=== PATIENT | male | born 1960 | race Caucasian/White ===

== ENCOUNTER 2017-01-19 06:55 | Inpatient (IN) | payer OTHER ==
[~2017-01-19] VITALS: Ht 182.9 cm; Wt 136.1 kg
[2017-01-19] VITALS (15 sets, daily range): BP systolic 36–150; BP diastolic 19–98
[2017-01-19] MEDS ORDERED: Ampicillin/Sulbactam Sod 3 GM in NS 110 ML IV SCH (07:30)
[2017-01-19 07:34] LABS: MEAN CORPUSCULAR HEMOGLOBIN 29.2 PG (27.0-31.0); MEAN CORPUSCULAR HGB CONC 30.2 G/DL (32.0-36.0); MEAN CORPUSCULAR VOLUME 97 FL (80-99); MEAN PLATELET VOLUME 5.9 FL (6.5-10.1); PLATELET COUNT 220 K/UL (150-450); RED BLOOD COUNT 1.28 M/UL (4.70-6.10); RED CELL DISTRIBUTION WIDTH 14.9 % (11.6-14.8)
[2017-01-19 07:38] LABS: WHITE BLOOD COUNT 30.4 K/UL (4.8-10.8)
--- NOTE | 2017-01-19 07:38 | Emergency Room Report ---
History of Present Illness General Chief Complaint: Altered Level of Consciousness Source: Family Member, EMS Present Illness HPI Patient is a 56-year-old male who is brought in by EMS after a full arrest. Patient was noted to have initially told his to call 911. The patient had prior history of chronic back pain and hypertension. He reportedly had been taking multiple pain medications. He had not been noted to have any cardiac history or recent episodes of bleeding. The patient had approximate downtime is 10 minutes prior to arrival.Patient previously been awake and alert.Intraosseous line was placed by EMS. Patient given one round of epinephrine prior to arrival Allergies: Coded Allergies: No Known Allergies (Unverified , 01/19/17) Patient History Past Medical History: see triage record Reviewed Nursing Documentation: PMH: Agreed, PSxH: Agreed Nursing Documentation-PMH Hx Hypertension: Yes Hx Diabetes: Yes Review of Systems All Other Systems: negative except mentioned in HPI Physical Exam Vital Signs Date Time Temp Pulse Resp B/P Pulse Ox O2 Delivery O2 Flow Rate FiO2 01/19/17 06:48 50 0 0/0 96 Ambu-Bag 01/19/17 06:55 100 01/19/17 06:55 50.0 Sp02 EP Interpretation: reviewed, normal General Appearance: normal inspection, well appearing, no apparent distress, alert, GCS 15 Head: atraumatic ENT: normal ENT inspection, hearing grossly normal, normal voice Neck: normal inspection, full range of motion, supple, no bony tend Respiratory: normal inspection, lungs clear, normal breath sounds, no respiratory distress, no retraction, no wheezing Cardiovascular #1: regular rate, rhythm, no edema Gastrointestinal: normal inspection, normal bowel sounds, non tender, soft, no guarding, no hernia Genitourinary: no CVA tenderness Musculoskeletal: normal inspection, back normal, normal range of motion Neurologic: normal inspection, alert, responsive, speech normal Psychiatric: normal inspection, judgement/insight normal, mood/affect normal Skin: normal inspection, normal color, no rash Procedures Critical Care Time Critical Care Time Patient had a critical medical condition which untreated could potentially result in life or limb threatening injury. Total critical care time excluding procedures approximately 45 minutes. Central Line Central Line : Consent: Emergent Central Line Lumen: triple Maximal Sterile Barrier Tech: yes cap, yes mask, yes sterile gown, yes sterile gloves, yes large sterile sheet, yes hand hygiene, yes chlorhexidine prep Central Line Postion: internal jugular (R) Anesthesia: local cc's of anesthesia: 3 Complications: none Central Line Post Position: sutured, good blood return, position confirmed w / CXR Attempts: Other - three attempted right subclavian without success and right femoral Patient Tolerated: Well Complications: None Intubation Intubation : Consent: Emergent Intubation Method: orotracheal Tube Size (cm): 8.0 Medications: Other - none Breath Sounds after Intubation: equal Intubation Complications: no complications Post Intubation Xray: Yes Attempts: One Patient Tolerated: Well Complications: None Medical Decision Making Diagnostic Impression: Primary Impression: Cardiac arrest Additional Impressions: Shock liver Hx of peptic ulcer Metabolic acidosis Severe anemia Upper GI bleed H/O gastric bypass Renal insufficiency ER Course Patient is a full arrest. The differential diagnosis include was noted to GI bleed, ulcer, myocardial infarction, aortic dissection, among others.Because of complexity of patient's case laboratory testing and imaging studies were ordered. The patient was noted to have initial full arrest. He was placed on cardiac exercise specialist. CPR was initiated. The patient was started on IV fluids via I/O and was given epinephrine.The medications are given as per code sheet. The patient was noted to have history calcium channel brian use and was given IV calcium and IV bicarbonateThe patient was given uncrossmatch blood emergently. Patient was subsequently noted to have a return spontaneous circulation as per code sheet. The patient's initial hemoglobin was approximately 4. The patient started on transfusion of crossmatched blood. He was given IV bicarbonate for metabolic acidosis. Patient was noted per family to have history of multiple medication use which included NSAIDs as well as narcotic pain medication. The patient was given IV Narcan without any change in his blood pressure.He stated on IV protonic. A right internal jugular central venous line was placed under sterile technique. Post procedure x-ray showed low ET tube which was adjusted to 25 cm. The patient was also noted to have adequate central line placement there is no evident pneumothorax noted.Patient's family was notified of the patient's condition.The patient was given IV calcium. Patient was also given empiric antibiotics as he appeared to have aspirated. Dr. Zaragoza was contacted for inpatient management due to capitated physician. Dr. Ireland was contacted for GI consult. Labs Test 01/19/17 07:00 01/19/17 07:05 01/19/17 07:41 White Blood Count 30.4 K/UL (4.8-10.8) Red Blood Count 1.28 M/UL (4.70-6.10) Hemoglobin 3.7 G/DL (14.2-18.0) Hematocrit 12.4 % (42.0-52.0) Mean Corpuscular Volume 97 FL (80-99) Mean Corpuscular Hemoglobin 29.2 PG (27.0-31.0) Mean Corpuscular Hemoglobin Concent 30.2 G/DL (32.0-36.0) Red Cell Distribution Width 14.9 % (11.6-14.8) Platelet Count 220 K/UL (150-450) Mean Platelet Volume 5.9 FL (6.5-10.1) Neutrophils (%) (Auto) % (45.0-75.0) Lymphocytes (%) (Auto) % (20.0-45.0) Monocytes (%) (Auto) % (1.0-10.0) Eosinophils (%) (Auto) % (0.0-3.0) Basophils (%) (Auto) % (0.0-2.0) Prothrombin Time 11.1 SEC (9.30-11.50) Prothromb Time International Ratio 1.1 (0.9-1.1) Activated Partial Thromboplast Time 55 SEC (23-33) Sodium Level 145 mEQ/L (135-145) Potassium Level 5.4 mEQ/L (3.4-4.9) Chloride Level 101 mEQ/L (98-107) Carbon Dioxide Level 7 mEQ/L (20-30) Anion Gap 37 (5-15) Blood Urea Nitrogen 29 mg/dL (7-23) Creatinine 2.1 mg/dL (0.7-1.2) Estimat Glomerular Filtration Rate 32.7 mL/min (>60) Glucose Level 209 mg/dL (74-106) Lactic Acid Level 23.10 mmol/L (0.66-2.22) Calcium Level 9.9 mg/dL (8.6-10.2) Total Bilirubin 0.5 mg/dL (0.0-1.2) Aspartate Amino Transf (AST/SGOT) 510 U/L (5-40) Alanine Aminotransferase (ALT/SGPT) 366 U/L (3-41) Alkaline Phosphatase 98 U/L (40-129) Creatine Kinase MB 4.4 ng/mL (< 6.7) Troponin I < 0.30 ng/mL (<=0.30) Pro-B-Type Natriuretic Peptide 1133 pg/mL (0-125) Total Protein 5.8 g/dL (6.6-8.7) Albumin 3.0 g/dL (3.5-5.2) Globulin 2.8 g/dL Albumin/Globulin Ratio 1.0 (1.0-2.7) Lipase 21 U/L (< 60) Arterial Blood pH 6.792 (7.350-7.450) Arterial Blood Partial Pressure CO2 44.5 mmHg (35.0-45.0) Arterial Blood Partial Pressure O2 179.7 mmHg (75.0-100.0) Arterial Blood HCO3 6.6 mmol/L (22.0-26.0) Arterial Blood Oxygen Saturation 96.7 % (92.0-98.0) Arterial Blood Base Excess -24.7 Ryley Test Positive EKG Diagnostic Results Rate: normal ST Segments: no acute changes Rhythm Strip Diag. Results EP Interpretation: yes Rhythm: NSR, no PVC's, no ectopy Last Vital Signs Date Time Temp Pulse Resp B/P Pulse Ox O2 Delivery O2 Flow Rate FiO2 01/19/17 06:58 50 0 0/0 98 Ambu-Bag 01/19/17 06:55 50.0 100 Status: unchanged Disposition: ADMITTED INPATIENT Condition: Critical Suman Garcia Jan 19, 2017 07:38
[2017-01-19 07:43] LABS: CALCIUM 9.9 mg/dL (8.6-10.2); CREATININE 2.1 mg/dL (0.7-1.2); GLOMERULAR FILTRATION RATE 32.7 mL/min (>60); POTASSIUM 5.4 mEQ/L (3.4-4.9); TOTAL PROTEIN 5.8 g/dL (6.6-8.7); TROPONIN I < 0.30 ng/mL (<=0.30)
[2017-01-19] MEDS ORDERED: Calcium Chloride 100mg/ml Vial IVP ONE ×2 (07:45→10:45)
[2017-01-19] MEDS ORDERED: Naloxone 1mg/ml 2ml IVP ONE (07:45)
[2017-01-19] MEDS ORDERED: Pantoprazole Inj IVP ONE (07:45)
[2017-01-19 07:47] LABS: ABG PCO2 44.5 mmHg (35.0-45.0)
[2017-01-19 07:48] LABS: ABG ALLEN TEST POSITIVE; ABG BASE EXCESS -24.7
[2017-01-19 07:49] LABS: INR 1.1 (0.9-1.1); PROTHROMBIN TIME 11.1 SEC (9.30-11.50)
[2017-01-19 07:54] LABS: CKMB 4.4 ng/mL (< 6.7)
[2017-01-19 07:55] LABS: REFLEX LACTIC ACID YES OR NO YES
[2017-01-19] MEDS ORDERED: Sodium Bicarbonate 50ml Carp IV ONE ×2 (08:00→10:45)
[2017-01-19 08:04] LABS: BAND NEUTROPHILS % (MANUAL) 4 % (0-8); BASOPHILS % (MANUAL) 0 % (0-2); EOSINOPHILS % (MANUAL) 1 % (0-3); LYMPHOCYTES % (MANUAL) 25 % (20-45); MYELOCYTES % 1 % (0-0); NEUTROPHILS % (MANUAL) 64 % (45-75); PLATELET ESTIMATE ADEQUATE; TOTAL CELLS COUNTED 100
[2017-01-19 08:05] LABS: ANISOCYTOSIS 1+; HYPOCHROMASIA 2+; MACROCYTES 1+; PLATELET MORPHOLOGY NORMAL; POLYCHROMASIA 1+
[2017-01-19 08:06] LABS: NUCLEATED RED BLOOD CELLS 2 /100 WBC
[2017-01-19] MEDS ORDERED: Unasyn 3gm Inj ONE (08:18)
[2017-01-19 08:41] LABS: ABG ALLEN TEST POSITIVE; ABG BASE EXCESS 24.5; ABG PCO2 56.4 mmHg (35.0-45.0)
[2017-01-19] MEDS ORDERED: Hydrocortisone 100mg Inj IV ONE (10:00)
[2017-01-19] MEDS ORDERED: Lidocaine 1% MPF 10mg/ml 5ml ONE (10:01)
[2017-01-19] MEDS ORDERED: UNOBMED (10:02)
[2017-01-19 10:09] LABS: MEAN CORPUSCULAR HEMOGLOBIN 30.1 PG (27.0-31.0); MEAN CORPUSCULAR VOLUME 94 FL (80-99); MEAN PLATELET VOLUME 6.2 FL (6.5-10.1); PLATELET COUNT 240 K/UL (150-450); RED BLOOD COUNT 3.23 M/UL (4.70-6.10)
[2017-01-19 10:10] LABS: WHITE BLOOD COUNT 38.7 K/UL (4.8-10.8)
[2017-01-19 10:32] LABS: ALBUMIN/GLOBULIN RATIO 1.2 (1.0-2.7); CALCIUM 8.5 mg/dL (8.6-10.2); CREATININE 2.1 mg/dL (0.7-1.2); GLOMERULAR FILTRATION RATE 32.7 mL/min (>60); TOTAL PROTEIN 4.7 g/dL (6.6-8.7)
[2017-01-19 10:37] LABS: POTASSIUM 7.9 mEQ/L (3.4-4.9)
[2017-01-19] MEDS: Ketamine HCl 100mg syr IV ONE ×2 (10:39→11:10)
[2017-01-19] MEDS ORDERED: Sodium Polystyrene Sulfonate Enema RECTAL ONE (10:45)
[2017-01-19 10:50] LABS: ANISOCYTOSIS 1+; BAND NEUTROPHILS % (MANUAL) 5 % (0-8); BASOPHILS % (MANUAL) 0 % (0-2); EOSINOPHILS % (MANUAL) 1 % (0-3); HYPOCHROMASIA 1+; LYMPHOCYTES % (MANUAL) 23 % (20-45); NEUTROPHILS % (MANUAL) 63 % (45-75); NUCLEATED RED BLOOD CELLS 1 /100 WBC; PLATELET ESTIMATE ADEQUATE; PLATELET MORPHOLOGY NORMAL; TOTAL CELLS COUNTED 100
[2017-01-19 10:51] LABS: POLYCHROMASIA 1+
[2017-01-19] MEDS ORDERED: Levophed 4mg/4mL Inj IV ONE (11:43)
--- NOTE | 2017-01-19 12:32 | History & Physical ---
History and Physical History & Physicial dict s/p arrest GI bleed, severe anemia anuric shock severe leucocytosis ICU renal, cardiology, GI called prognosis DANNY Bloom Jan 19, 2017 12:32
[2017-01-19 13:33] LABS: OTHERS PATHOLOGIST COMMENT
[2017-01-19 13:42] LABS: MEAN CORPUSCULAR HEMOGLOBIN 30.6 PG (27.0-31.0); MEAN CORPUSCULAR HGB CONC 32.1 G/DL (32.0-36.0); MEAN CORPUSCULAR VOLUME 95 FL (80-99); MEAN PLATELET VOLUME 6.6 FL (6.5-10.1); PLATELET COUNT 100 K/UL (150-450); RED BLOOD COUNT 2.26 M/UL (4.70-6.10); RED CELL DISTRIBUTION WIDTH 15.2 % (11.6-14.8)
[2017-01-19] MEDS ORDERED: Tubing IV Blood Pump IV ONE (13:44)
[2017-01-19 14:03] LABS: ANISOCYTOSIS 1+; BAND NEUTROPHILS % (MANUAL) 10 % (0-8); BASOPHILS % (MANUAL) 0 % (0-2); EOSINOPHILS % (MANUAL) 0 % (0-3); HYPOCHROMASIA 1+; LYMPHOCYTES % (MANUAL) 33 % (20-45); MYELOCYTES % 3 % (0-0); NEUTROPHILS % (MANUAL) 50 % (45-75); NUCLEATED RED BLOOD CELLS 4 /100 WBC; PLATELET ESTIMATE DECREASED; PLATELET MORPHOLOGY NORMAL; TOTAL CELLS COUNTED 100
[2017-01-19 14:05] LABS: POLYCHROMASIA 1+
[2017-01-19 14:10] LABS: CREATININE 2.2 mg/dL (0.7-1.2)
[2017-01-19 14:17] LABS: POTASSIUM 7.6 mEQ/L (3.4-4.9)
[2017-01-19 14:18] LABS: CALCIUM 14.1 mg/dL (8.6-10.2)
--- NOTE | 2017-01-19 15:48 | Diagnostic Imaging Report ---
Indication: Dyspnea Comparison: None A single view chest radiograph was obtained. Findings: Endotracheal tube is just above the cachorro in good position. A right jugular line is present in good position. Heart size is relatively normal. There is ill-defined perihilar densities that may be a mild central pulmonary edema/venous congestion versus infiltrate. Please correlate clinically. The bones appear slightly osteopenic. Impression: Tubes and lines in good position. Perihilar and retrocardiac lung disease. Suspect pneumonia. Differential includes a pulmonary venous congestion.
--- NOTE | 2017-01-19 15:48 | Diagnostic Imaging Report ---
Indication: Dyspnea Comparison: 01/19/17 A single view chest radiograph was obtained. Findings: Tubes and lines are stable. There is wedge cardiac opacification. There is ill-defined perihilar infiltrate as well the right. Please correlate clinically. Impression: Perihilar and left basilar infiltrate versus central pulmonary edema. No significant change.
[2017-01-19] MEDS ORDERED: cefTRIAXone 1 GM in D5W 55 ML IVPB SCH (16:00)
--- NOTE | 2017-01-19 16:12 | Emergency Room Report ---
History of Present Illness General Chief Complaint: Altered Level of Consciousness Source: Family Member, EMS Present Illness Allergies: Coded Allergies: No Known Allergies (Unverified , 01/19/17) Nursing Documentation-PMH Hx Hypertension: Yes Hx Diabetes: Yes Physical Exam Vital Signs Date Time Temp Pulse Resp B/P Pulse Ox O2 Delivery O2 Flow Rate FiO2 01/19/17 06:48 50 0 0/0 96 Ambu-Bag 01/19/17 06:55 100 01/19/17 06:55 50.0 01/19/17 07:20 97.7 Procedures CPR/Code Blue CPR/Code Blue Narrative See code sheet for full medications. Patient was noted to have bradycardic arrest. Patient had recently been seen emergency Department transfused multiple units after upper GI bleed and was noted to be hyperkalemic. Patient was given medications as per code sheet. The patient had a prolonged code which eventually resulted in the return spontaneous circulation. The family was notified of the patient's poor prognosis. Medical Decision Making Diagnostic Impression: Primary Impression: Cardiac arrest Additional Impressions: Hx of peptic ulcer H/O gastric bypass Upper GI bleed Severe anemia Renal insufficiency Shock liver Metabolic acidosis Last Vital Signs Date Time Temp Pulse Resp B/P Pulse Ox O2 Delivery O2 Flow Rate FiO2 01/19/17 12:14 97.4 23 46/28 85 Mechanical Ventilator 50.0 100 01/19/17 11:34 83 Disposition: ADMITTED INPATIENT Condition: Critical Referrals: MARIAN CROWELL M.D. (PCP) Suman Garcia Jan 19, 2017 16:12
--- NOTE | 2017-01-19 16:13 | Emergency Room Report ---
History of Present Illness General Chief Complaint: Altered Level of Consciousness Source: Family Member, EMS Present Illness Allergies: Coded Allergies: No Known Allergies (Unverified , 01/19/17) Nursing Documentation-PMH Hx Hypertension: Yes Hx Diabetes: Yes Physical Exam Vital Signs Date Time Temp Pulse Resp B/P Pulse Ox O2 Delivery O2 Flow Rate FiO2 01/19/17 06:48 50 0 0/0 96 Ambu-Bag 01/19/17 06:55 100 01/19/17 06:55 50.0 01/19/17 07:20 97.7 Procedures CPR/Code Blue CPR/Code Blue Narrative The patient was noted to have previously had a CODE BLUE x2 patient was given medications as per code sheet. The patient had no return spontaneous circulation. Primary care physician and family were notified of the patient . Medical Decision Making Diagnostic Impression: Primary Impression: Cardiac arrest Additional Impressions: Hx of peptic ulcer H/O gastric bypass Upper GI bleed Severe anemia Renal insufficiency Shock liver Metabolic acidosis Last Vital Signs Date Time Temp Pulse Resp B/P Pulse Ox O2 Delivery O2 Flow Rate FiO2 01/19/17 12:14 97.4 23 46/28 85 Mechanical Ventilator 50.0 100 01/19/17 11:34 83 Disposition: Condition: Critical Referrals: MARIAN CROWELL M.D. (PCP) Suman Garcia Jan 19, 2017 16:13
--- NOTE | 2017-01-19 17:12 | GI Initial Consult Note ---
History of Present Illness General Date patient seen: Jan 19, 2017 Time patient seen: 13:00 Reason for Hospitalization: Altered Level of Consciousness Referring physician: DANNY LOPEZ Reason for Consultation: UGIB Present Illness HPI Patient is a 56-year-old male who is brought in by EMS after a full arrest. Patient was noted to have initially told his to call 911. The patient had prior history of chronic back pain and hypertension. He reportedly had been taking multiple pain medications. He had not been noted to have any cardiac history or recent episodes of bleeding. The patient had approximate downtime is 10 minutes prior to arrival.Patient previously been awake and alert.Intraosseous line was placed by EMS. Patient given one round of epinephrine prior to arrival GI Consult. HPI as noted above. GI consulted for UGIB. Pt noted to arrive in am with severe anemia Hgb 3.5 requiring 6 units of pRBCs. Plan was to perform endoscopy s/p blood transfusions. Pt was then transferred to ICU and seen @ 1245. Within minutes the code was called. GI team was notified for emergency endoscopy. When the team arrived, the patient had already and been pronounced by the ED MD. Home Meds Reported Medications Unable to Obtain Medications (UNABLE TO OBTAIN MEDS) 1 Ea Ea 01/19/17 Allergies: Coded Allergies: No Known Allergies (Unverified , 01/19/17) Physical Exam Vital Signs Date Time Temp Pulse Resp B/P Pulse Ox O2 Delivery O2 Flow Rate FiO2 01/19/17 06:48 50 0 0/0 96 Ambu-Bag 01/19/17 06:55 100 01/19/17 06:55 50.0 01/19/17 07:20 97.7 Labs Laboratory Tests Test 01/19/17 07:00 01/19/17 07:05 01/19/17 07:41 01/19/17 08:00 White Blood Count 30.4 K/UL (4.8-10.8) *H Red Blood Count 1.28 M/UL (4.70-6.10) L Hemoglobin 3.7 G/DL (14.2-18.0) *L Hematocrit 12.4 % (42.0-52.0) L Mean Corpuscular Volume 97 FL (80-99) Mean Corpuscular Hemoglobin 29.2 PG (27.0-31.0) Mean Corpuscular Hemoglobin Concent 30.2 G/DL (32.0-36.0) L Red Cell Distribution Width 14.9 % (11.6-14.8) H Platelet Count 220 K/UL (150-450) Mean Platelet Volume 5.9 FL (6.5-10.1) L Neutrophils (%) (Auto) % (45.0-75.0) Lymphocytes (%) (Auto) % (20.0-45.0) Monocytes (%) (Auto) % (1.0-10.0) Eosinophils (%) (Auto) % (0.0-3.0) Basophils (%) (Auto) % (0.0-2.0) Differential Total Cells Counted 100 Neutrophils % (Manual) 64 % (45-75) Lymphocytes % (Manual) 25 % (20-45) Monocytes % (Manual) 5 % (1-10) Eosinophils % (Manual) 1 % (0-3) Basophils % (Manual) 0 % (0-2) Myelocytes % 1 % (0-0) H Band Neutrophils 4 % (0-8) Nucleated Red Blood Cells 2 /100 WBC Other Cell Type Pathologist comment Platelet Estimate Adequate Platelet Morphology Normal Polychromasia 1+ Hypochromasia 2+ Anisocytosis 1+ Macrocytosis 1+ Prothrombin Time 11.1 SEC (9.30-11.50) Prothromb Time International Ratio 1.1 (0.9-1.1) Activated Partial Thromboplast Time 55 SEC (23-33) H Sodium Level 145 mEQ/L (135-145) Potassium Level 5.4 mEQ/L (3.4-4.9) H Chloride Level 101 mEQ/L (98-107) Carbon Dioxide Level 7 mEQ/L (20-30) *L Anion Gap 37 (5-15) H Blood Urea Nitrogen 29 mg/dL (7-23) H Creatinine 2.1 mg/dL (0.7-1.2) H Estimat Glomerular Filtration Rate 32.7 mL/min (>60) Glucose Level 209 mg/dL (74-106) H Lactic Acid Level 23.10 mmol/L (0.66-2.22) H 23.00 mmol/L (0.66-2.22) H Calcium Level 9.9 mg/dL (8.6-10.2) Total Bilirubin 0.5 mg/dL (0.0-1.2) Aspartate Amino Transf (AST/SGOT) 510 U/L (5-40) H Alanine Aminotransferase (ALT/SGPT) 366 U/L (3-41) H Alkaline Phosphatase 98 U/L (40-129) Total Creatine Kinase 2366 U/L (26-140) H Creatine Kinase MB 4.4 ng/mL (< 6.7) Creatine Kinase MB Relative Index 0.1 Troponin I < 0.30 ng/mL (<=0.30) Pro-B-Type Natriuretic Peptide 1133 pg/mL (0-125) H Total Protein 5.8 g/dL (6.6-8.7) L Albumin 3.0 g/dL (3.5-5.2) L Globulin 2.8 g/dL Albumin/Globulin Ratio 1.0 (1.0-2.7) Lipase 21 U/L (< 60) Arterial Blood pH 6.792 (7.350-7.450) Arterial Blood Partial Pressure CO2 44.5 mmHg (35.0-45.0) Arterial Blood Partial Pressure O2 179.7 mmHg (75.0-100.0) H Arterial Blood HCO3 6.6 mmol/L (22.0-26.0) L Arterial Blood Oxygen Saturation 96.7 % (92.0-98.0) Arterial Blood Base Excess -24.7 Ryley Test Positive Test 01/19/17 08:35 01/19/17 09:55 01/19/17 13:30 Arterial Blood pH 6.804 (7.350-7.450) Arterial Blood Partial Pressure CO2 56.4 mmHg (35.0-45.0) *H Arterial Blood Partial Pressure O2 144.0 mmHg (75.0-100.0) H Arterial Blood HCO3 8.7 mmol/L (22.0-26.0) L Arterial Blood Oxygen Saturation 96.0 % (92.0-98.0) Arterial Blood Base Excess 24.5 Ryley Test Positive White Blood Count 38.7 K/UL (4.8-10.8) *H 29.0 K/UL (4.8-10.8) *H Red Blood Count 3.23 M/UL (4.70-6.10) L 2.26 M/UL (4.70-6.10) L Hemoglobin 9.7 G/DL (14.2-18.0) #L 6.9 G/DL (14.2-18.0) *L Hematocrit 30.5 % (42.0-52.0) #L 21.6 % (42.0-52.0) L Mean Corpuscular Volume 94 FL (80-99) 95 FL (80-99) Mean Corpuscular Hemoglobin 30.1 PG (27.0-31.0) 30.6 PG (27.0-31.0) Mean Corpuscular Hemoglobin Concent 32.0 G/DL (32.0-36.0) 32.1 G/DL (32.0-36.0) Red Cell Distribution Width 14.0 % (11.6-14.8) 15.2 % (11.6-14.8) H Platelet Count 240 K/UL (150-450) 100 K/UL (150-450) #L Mean Platelet Volume 6.2 FL (6.5-10.1) L 6.6 FL (6.5-10.1) Neutrophils (%) (Auto) % (45.0-75.0) % (45.0-75.0) Lymphocytes (%) (Auto) % (20.0-45.0) % (20.0-45.0) Monocytes (%) (Auto) % (1.0-10.0) % (1.0-10.0) Eosinophils (%) (Auto) % (0.0-3.0) % (0.0-3.0) Basophils (%) (Auto) % (0.0-2.0) % (0.0-2.0) Differential Total Cells Counted 100 100 Neutrophils % (Manual) 63 % (45-75) 50 % (45-75) Lymphocytes % (Manual) 23 % (20-45) 33 % (20-45) Monocytes % (Manual) 8 % (1-10) 4 % (1-10) Eosinophils % (Manual) 1 % (0-3) 0 % (0-3) Basophils % (Manual) 0 % (0-2) 0 % (0-2) Band Neutrophils 5 % (0-8) 10 % (0-8) H Nucleated Red Blood Cells 1 /100 WBC 4 /100 WBC Platelet Estimate Adequate Decreased L Platelet Morphology Normal Normal Polychromasia 1+ 1+ Hypochromasia 1+ 1+ Anisocytosis 1+ 1+ Sodium Level 141 mEQ/L (135-145) 149 mEQ/L (135-145) H Potassium Level 7.9 mEQ/L (3.4-4.9) *H 7.6 mEQ/L (3.4-4.9) *H Chloride Level 102 mEQ/L (98-107) 111 mEQ/L (98-107) H Carbon Dioxide Level 13 mEQ/L (20-30) L 12 mEQ/L (20-30) L Anion Gap 26 (5-15) H 26 (5-15) H Blood Urea Nitrogen 28 mg/dL (7-23) H 27 mg/dL (7-23) H Creatinine 2.1 mg/dL (0.7-1.2) H 2.2 mg/dL (0.7-1.2) H Estimat Glomerular Filtration Rate 32.7 mL/min (>60) 31.0 mL/min (>60) Glucose Level 237 mg/dL (74-106) H 77 mg/dL (74-106) # Calcium Level 8.5 mg/dL (8.6-10.2) L 14.1 mg/dL (8.6-10.2) #*H Total Bilirubin 0.7 mg/dL (0.0-1.2) Aspartate Amino Transf (AST/SGOT) 2182 U/L (5-40) H Alanine Aminotransferase (ALT/SGPT) 1830 U/L (3-41) H Alkaline Phosphatase 473 U/L (40-129) H Total Protein 4.7 g/dL (6.6-8.7) L Albumin 2.6 g/dL (3.5-5.2) L Globulin 2.1 g/dL Albumin/Globulin Ratio 1.2 (1.0-2.7) Triglycerides Level 156 mg/dL (< 150) H Acetaminophen Level < 10 ug/mL (10-30) L Myelocytes % 3 % (0-0) H Current Medications Current Medications Medications (Trade) Dose Ordered Sig/Jamila Route PRN Reason Start Time Stop Time Status Last Admin Dose Admin Ceftriaxone Sodium/Dextrose (Rocephin/D5W) 55 ml @ 110 mls/hr Q24H IVPB 01/19/17 16:00 01/26/17 15:59 Esomeprazole Sodium (Nexium I.v.) 40 mg DAILY IVP 01/20/17 09:00 02/19/17 08:59 UNV Sodium Chloride 1,000 ml @ 125 mls/hr Q8H IV 01/19/17 13:30 02/18/17 13:29 GI: Plan Plan Patient , see HPI. Carolee Jimenez N.P. Jan 19, 2017 17:12
--- NOTE | 2017-01-19 18:00 | History and Physical Report ---
DATE OF ADMISSION: 01/19/2017 CHIEF COMPLAINT: Cardiac arrest. HISTORY OF PRESENT ILLNESS: The patient is a 56-year-old man who was brought in by paramedics in full cardiopulmonary arrest. He apparently told his to call the paramedics and then lost consciousness. He had been bleeding and the later found a container with blood in it in the home. He has chronic back pain and had been taking medications for this. He does apparently have a history of ulcer disease. In the emergency department, he was placed on ventilator support and given blood transfusions after his hemoglobin was found to be 3.7. He is moving his extremities somewhat, but is not making any urine. The states he has been lethargic since starting oxycodone. PAST MEDICAL HISTORY: Include major depression, chronic low back pain, anxiety, and hypertension. He had bariatric surgery in the past and is morbidly obese. MEDICATIONS: His outpatient medications including Xanax, Norvasc, Lamictal, Cozaar, Risperdal, Naprosyn, and Flexeril. He was recently given diclofenac and Toradol. He was referred to pain management as an outpatient at [facility] and was given oxycodone. He apparently is also taking ibuprofen. ALLERGIES: None. REVIEW OF SYSTEMS: Cannot be obtained. CODE STATUS: Full code. PHYSICAL EXAMINATION: GENERAL: The patient is unresponsive, lying in bed. VITAL SIGNS: Heart rate is about 100, respirations are controlled on the ventilator, and blood pressure is 88 systolic, on Levophed and temperature was not measured, but he feels cool. He is morbidly obese appearing. HEENT: The head is normocephalic. Mouth, there is an orotracheal tube in place. NECK: No jugular vein distention. CHEST: Clear. There is subcutaneous emphysema in the right supraclavicular area. CARDIAC: Rhythm is regular. Heart tones are distant. ABDOMEN: Soft and nontender. There is no liver or spleen enlargement. EXTREMITIES: No clubbing, cyanosis, or edema. The feet are cool. There is a Garrett catheter in place. LABORATORY AND DIAGNOSTIC DATA: Laboratory studies show Tylenol level is negative. The white blood count is 30,000 and repeat 38,000, hemoglobin was 3.7 and repeat after transfusion 9.7, and platelet count is normal. Blood gas showed pH of 6.8, pCO2 of 44, and PO2 180. Repeat blood gas showed a pH is 6.8, pCO2 56, pO2 144, and base excess is -24. Chemistry shows initial potassium was 5.4 and repeat is 7.9. The emergency physician gave treatment for this. Bicarbonate initially was 7 and improved to 13 and creatinine is 2.1. Sodium is normal. Lactic acid is elevated at 23 and repeat remained 23. Liver enzymes are elevated in the 1800 to 2000 range. Bilirubin is normal. Albumin is 2.6. Lipase is normal. DIAGNOSTIC DATA: Chest x-ray is clear. Endotracheal tube is in good position. IMPRESSION: 1. Status post cardiac arrest. 2. Shock, hypovolemic, and possibly cardiac. 3. Severe anemia. 4. Gastrointestinal bleeding. 5. Respiratory failure. 6. Shock liver. 7. Acute renal failure, anuric. 8. Severe hyperkalemia following blood transfusion. 9. Chronic low back pain. 10. History of hypertension, now hypotensive. 11. Severe metabolic acidosis. 12. Severe leukocytosis, possible sepsis, possible stress reaction. 13. Chronic depression. PLAN: The patient will be admitted to intensive care. Ventilator support will be continued along with vasopressors and blood transfusions as needed. GI consultation and Cardiac consultation have been requested. Proton pump inhibitors will be given. Transfusions will be given as needed. We will request Nephrology consultation for acute renal failure. The prognosis is poor. I discussed this with the . I have reviewed his [facility] records and called his PMD, Dr Perez and left a message. Burton Zaragoza M.D. DR: KIMBERLY JOB#: [id number] CC: Cyndy Walton M.D. ; Fax#: [phone] [place]
--- NOTE | 2017-01-20 05:37 | Discharge Summary ---
Discharge Summary Hospital Course Date of Admission Jan 19, 2017 at 08:18 Date of Discharge Jan 19, 2017 at 13:45 Admitting Diagnosis s/p arrest upper gi bleed, severe anemia, metaboli HPI Ryley Kat is a 56 year old male who was admitted on Jan 19, 2017 at 08:18 for S/P Arrest Upper Gastroinstestinal Bleed,Severe An Hospital Course [id number] Discharge Discharge Disposition Patient Discharge Diagnoses: Alena Khan NP Jan 20, 2017 05:37
[2017-01-20] MEDS ORDERED: Esomeprazole sodium 40mg vial IVP SCH (09:00)
--- NOTE | 2017-01-20 09:31 | Consultation ---
DATE OF CONSULTATION: 01/19/2017 CARDIOLOGY CONSULTATION CONSULTING PHYSICIAN: Kunal Butterfield M.D. REQUESTING PHYSICIAN: Burton Zaragoza M.D. Time of consultation 12:05 p.m. REASON FOR CONSULTATION: Status post cardiac arrest. HISTORY OF PRESENT ILLNESS: This is a 56-year-old white male. He suffered a full cardiopulmonary arrest at home and was brought into the emergency room by paramedics. The patient apparently was feeling poorly to ask his to call paramedics and then passed out. The patient apparently had been bleeding, as his found the container of blood at home following the event is noted. The patient has chronic back pain and has been on pain medications. He also has a history of ulcer disease. On arrival to the emergency room, the patient was immediately intubated and placed on mechanical ventilation. He had been resuscitated in the field and apparently was out for 10 minutes. Initial laboratory studies were notable for hemoglobin of less than 4 g/dL. The patient was transfused immediately with uncross matched blood since repeat hemoglobin level at this time is almost . The patient also has a repeat potassium level above 7. PAST MEDICAL HISTORY: According to his include a major depression, chronic low back pain, hypertension, anxiety, and prior history of bariatric surgery. MEDICATIONS: Reviewed and reconciled. ALLERGIES: None known. FAMILY HISTORY: Noncontributory. SOCIAL HISTORY: No record of smoking or alcohol abuse for available data. REVIEW OF SYSTEMS: Otherwise not obtainable as the patient is presently unresponsive. PHYSICAL EXAMINATION: GENERAL: Orally intubated, mechanically ventilated, unresponsive, moving all extremities in response to painful stimuli. VITAL SIGNS: Blood pressure is 46/28, heart rate is 83, respiratory rate 23 to 35, and temperature 97.4 axillary. HEENT: Normocephalic and atraumatic. Orally intubated. NECK: Supple. Difficult to assess jugular venous pressure at this time. LUNGS: With bilateral breath sounds. CARDIAC: Regular rhythm and rate. Normal S1, S2. No murmur. ABDOMEN: Soft and obese. No focal tenderness. No hepatomegaly. EXTREMITIES: Without edema. Capillary refill is diminished. Garrett catheter in place. There is no urine output. LABORATORY AND DIAGNOSTIC DATA: Labs notable for Tylenol level negative. White count is 38,000; hemoglobin 3.7 on admission and subsequently 9.7, and platelet count within normal limits. Arterial blood gas, pH 6.8, pCO2 44, and pO2 180. Repeat potassium 7.9, initially it was 5.4. Bicarbonate 7 on admission and subsequent developed 13. Lactic acid is 23. Liver function tests in 1800 range. Albumin 2.6. Troponin is negative. Chest x-ray with no acute process. EKG, sinus rhythm, nonspecific ST change. IMPRESSION: 1. The patient is in critical condition and prognosis is guarded. 2. Status post cardiopulmonary arrest. 3. Hypovolemic and possibly septic shock. 4. Severe anemia due to gastrointestinal bleeding. 5. Hyperkalemia following transfusions. 6. Shock liver. 7. Respiratory failure. 8. Acute renal failure with anuria. 9. Severe metabolic acidosis. 10. Severe leukocytosis. PLAN: 1. Ventilator support. 2. Pressor support. 3. Volume resuscitation. 4. Proton pump inhibitor intravenous. 5. Serial hemoglobin with transfusions as needed. 6. Taper pressors as able. 7. Kayexalate will be given and repeat potassium ordered. 8. Serial troponin levels have been requested. 9. NG-tube to low intermittent suction is planned. Kunal Butterfield M.D. DR: CHALINO JOB#: [id number] CC:
--- NOTE | 2017-01-20 14:47 | Discharge Summary 2 SIG ---
DATE OF ADMISSION: 01/19/2017 DATE OF DISCHARGE: 01/19/2017 BRIEF SUMMARY: The patient is an unfortunate 56-year-old male, who was brought in by paramedics after a full cardiopulmonary arrest. Apparently, the patient lost consciousness. Paramedics were then called in. He has history of ulcer disease with chronic back pain and has been taking medications for back pain. In emergency department, he was immediately placed on ventilatory support. Hemoglobin was found to be 3.7. He was admitted to ICU and was given vasopressors and blood transfusion. He was noted to be hyperkalemic. The patient continued to decline. Code Harry was called. Resuscitative efforts failed and there was no return of spontaneous circulation. The patient eventually . FINAL DIAGNOSES: 1. Status post cardiac arrest. 2. Shock, hypovolemic, and possibly cardiac. 3. Severe acute anemia requiring blood transfusion. 4. Acute gastrointestinal bleed. 5. Acute respiratory failure. 6. Shock liver. 7. Acute renal failure. 8. Severe hyperkalemia. 9. Chronic low back pain. 10. History of hypertension. 11. Severe metabolic acidosis. 12. Severe leukocytosis, possible sepsis, possible stress reaction. 13. Chronic depression. Burton Zaragoza M.D. I have been assigned to dictate discharge summary on this account and I was not involved in the patient's management. Alena Khan N.P. DR: OLAMIDE JOB#: [id number] CC: [place]
== END 2017-01-19 13:45 | disposition expired | DRG 377 ==
LOC: EDBD 06:55 → EMR 07:10 → ICU 08:18 → EDBEDREQ 11:24
DX: K92.2 Gastrointestinal hemorrhage, unspecified (principal); J96.00 Acute respiratory failure, unspecified whether with hypoxia or hypercapnia; K72.00 Acute and subacute hepatic failure without coma; R57.1 Hypovolemic shock; N17.9 Acute kidney failure, unspecified; E87.2 Acidosis; I95.9 Hypotension, unspecified; Z68.41 Body mass index [BMI] 40.0-44.9, adult; D64.9 Anemia, unspecified; D72.829 Elevated white blood cell count, unspecified; E87.5 Hyperkalemia; E66.01 Morbid (severe) obesity due to excess calories; Z98.84 Bariatric surgery status; G89.29 Other chronic pain; M54.9 Dorsalgia, unspecified; F32.89 Other specified depressive episodes; I10 Essential (primary) hypertension
CPT/HCPCS: 31500; 36415; 36600; 71010; 80048; 80053; 80329; 82550; 82553; 82803; 83605; 83690; 83880; 84478; 84484; 85007; 85025; 85610; 85730; 86850; 86900; 86901; 86920; 87040; 87081; 92950; 93005; 94002; 94003; 94664; J2310